=== PATIENT | female | born 1945 | race Caucasian/White ===

== ENCOUNTER 2017-09-06 07:25 | Day surgery (SDC) | payer OTHER ==
[2017-08-31 15:38] VITALS: Ht 160 cm; Wt 54.5 kg
[~2017-09-06] VITALS: Ht 160 cm; Wt 54.5 kg
[~2017-09-06 07:25] MED LIST: ALEN70TA3 PO; ASPI325T39 PO; CEFAZOLIN 2000MG IV PUSH 15 ML IV SCH; CITA40TA12 PO; HYDR25TA4 PO; LACTATED RINGER'S 1000ML 1,000 ML IV SCH; LISI40TA PO; SIME1CAP11 PO; SIMV40TA2 PO
[2017-09-06] MEDS ORDERED: ONDANSETRON INJ 2 MG/ML 2 ML VIAL IV PRN ×2 (08:00→10:45)
[2017-09-06] MEDS ORDERED: LABETALOL HCL IV 5 MG/ML 20ML IV PRN (08:00)
[2017-09-06] MEDS ORDERED: FENTANYL CITRATE INJ 50 MCG/1 ML 2 ML VIAL IV PRN (08:00)
[2017-09-06] MEDS ORDERED: MEPERIDINE HCL 25 MG/ML CARP IV PRN (08:00)
[2017-09-06] MEDS ORDERED: ATROPINE SULFATE 0.1 MG/ML 5ML SYR IV PRN (08:00)
[2017-09-06] MEDS ORDERED: EpHEDrine SULFATE INJ 50 MG/ML AMP IV PRN (08:00)
[2017-09-06] MEDS ORDERED: HYDROmorphone INJ 1 MG/ML SYR IV PRN (08:00)
[2017-09-06 08:16] VITALS: BP 159/56; PULSE 75; TEMP 36.6; O2SAT 93
[2017-09-06] MEDS ORDERED: MIDAZOLAM HCL 1 MG/ML 2ML VIAL ONE (08:47)
[2017-09-06] MEDS ORDERED: FENTANYL CITRATE INJ 50 MCG/1 ML 2 ML VIAL ONE (08:48)
--- NOTE | 2017-09-06 09:16 | History & Physical Bridge Note ---
H&P Re-Evaluation Bridge Note: I have examined the patient, reviewed the History & Physical and in the interval since the performance of the History & Physical I have noted the following changes of clinical significance: No changes noted
[2017-09-06] MEDS ORDERED: BUPIVACAINE 0.5 % 5 MG/1 ML MPF 30ML VIAL ONE (09:36)
[2017-09-06] MEDS ORDERED: PROPOFOL IV EMULSION 10 MG/ML 20 ML VIAL IV ONE (10:07)
[2017-09-06] MEDS ORDERED: EpHEDrine SULFATE 50MG/5ML SYR ONE (10:07)
[2017-09-06] MEDS ORDERED: PHENYLEPHRINE 100MCG/ML 5ML SYR ONE (10:07)
[2017-09-06] MEDS ORDERED: ONDANSETRON INJ 2 MG/ML 2 ML VIAL ONE (10:07)
[2017-09-06] MEDS ORDERED: DEXAMETHASONE SOD INJ 4 MG/ML VIAL ONE (10:07)
[2017-09-06] MEDS ORDERED: LIDOCAINE HCL 2% 2 ML VIAL (20MG/ML) ONE (10:07)
--- NOTE | 2017-09-06 10:30 | [facility] Post Operative Brief Note ---
Immediate Operative Summary Operative Date Sep 06, 2017. Pre-Operative Diagnosis Left Inguinal Hernia Post-Operative Diagnosis Left Femoral Hernia Procedure(s) Performed Left Femoral Hernia Repair with Mesh Surgeon Dr. Diego Pate Nut Feeder Surgeon(s) None Estimated Blood Loss 5ml Findings See Below See dictation Specimens none per surgeon Drains None Anesthesia Type General Complication(s) none
[2017-09-06] MEDS ORDERED: SODIUM CHLORIDE 0.9% 1000ML 1,000 ML IV SCH (10:31)
--- NOTE | 2017-09-06 10:33 | Discharge Instructions ---
Discharge Instructions Date of Service Sep 06, 2017. Admission Reason for Admission: Left Inguinal Hernia Discharge Discharge Diagnosis / Problem: Left femoral hernia Discharge Goals Goal(s): Decrease discomfort Activity Recommendations Activity Limitations: per Instructions/Follow-up section Lifting Limitations: no more than 10 pounds (for 6 weeks) Shower/Bathe: tomorrow (shower only) ACTIVITY RECOMMENDATIONS: * Walk as much as possible. * No heavy lifting (>10 lbs.) for 6 weeks. SPECIAL CARE INSTRUCTIONS: * Ice to hernia repair site on and off until bedtime tonight. * May shower in 24 hours. Let water run over area and pat dry. * Leave steri strips on for one week. * Call the surgeon's office with any questions or concerns - (ex. temperature higher than 101 degrees F, excessive bleeding or pain). MEDICATIONS: Resume previous medications unless instructed otherwise by your surgeon. * Ibuprofen 600 mg every 6 hours with food * Percocet 1 every 4 hours, as needed for pain FOLLOW UP VISIT: If not already scheduled, please call the office to schedule a two week follow- up appointment. Office number . Current Hospital Diet Patient's current hospital diet: Discharge Diet Recommended Diet: Regular Diet Procedures Procedures Performed: Left Femoral Hernia Repair with Mesh Pending Studies Studies pending at discharge: no Medical Emergencies . Who to Call and When: Medical Emergencies: If at any time you feel your situation is an emergency, please call 911 immediately. . Non-Emergent Contact Non-Emergency issues call your: Primary Care Provider, Surgeon Call Non-Emergent contact if: your pain is worsening, wound has increased redness, wound has increased pain . "Provider Documentation" section prepared by Diego Pate. . VTE Core Measure Inpt VTE Proph given/why not?: Treatment not indicated
[2017-09-06] MEDS ORDERED: OXYCODONE/ACETAMINOPHEN 5-325 TAB PO PRN (10:45)
[2017-09-06] MEDS ORDERED: MoRPHine SULFATE 4 MG/ML 1 ML CARP\\VIAL IV PRN (10:45)
--- NOTE | 2017-09-06 10:50 | OPERATIVE REPORT ---
DATE OF OPERATION: 09/06/2017 PREOPERATIVE DIAGNOSIS: Left inguinal hernia. POSTOPERATIVE DIAGNOSIS: Left femoral hernia. PROCEDURE: Repair of left femoral hernia. SURGEON: Dr. Pate. FINDINGS: The patient had a femoral hernia. It was clearly coming through the femoral canal below the inguinal ligament. I did not explore the inguinal canal once the femoral hernia was identified. There were no incarcerated contents. TECHNIQUE: The patient was given a general anesthetic and the area was prepped and draped in the usual sterile fashion. Left inguinal incision was made, carried down through the subcutaneous tissue. There was 1 bridging vessel that had to be doubly clamped, divided and ligated using 3-0 Vicryl ties. Further dissection was carried out until the hernia sac could be identified and it was then clear that the hernia sac was coming through the femoral canal below the inguinal ligament. It was away from the surrounding subcutaneous tissue using blunt and cautery dissection where appropriate. This dissection was carried down until the edges of the defect and edges of the fascia could be identified. The hernia sac was then easily reduced. The peritoneum was away from the undersurface of the fascia inside the fascia. A large mesh plug was then obtained. Some of the inner leaflets were removed and was then placed in the retrofascial preperitoneal position. It was secured to the edges of the fascia using 0 PDS. The fascial defect was then closed with a single 0 PDS. The area was inspected for bleeding and none was seen. The deep subcutaneous tissue was closed with running 2-0 Vicryl, the superficial subcutaneous tissue was closed with running 3-0 Vicryl and skin was closed with 4-0 Monocryl in a running subcuticular fashion. Skin was anesthetized with 0.5% Marcaine and an ilioinguinal block was performed with that same local. Estimated blood loss was 5 mL. Sponge, needle and instrument counts were correct prior to closure. The patient tolerated the surgical procedure without complication and was transferred to recovery. I attest to the content of the Intraoperative Record and any orders documented therein. Any exception s are noted below.
[2017-09-06 11:20] VITALS: BP 118/57; PULSE 81; TEMP 36.5; O2SAT 96
[2017-09-06 11:50] VITALS: BP 107/47; PULSE 86; TEMP 36.5; O2SAT 94
--- NOTE | 2017-09-06 11:50 | Anesthesiology Progress Note ---
Anesthesia Post Op Note Date & Time Sep 06, 2017 at 11:50 Vital Signs Pain Intensity: 0 Vital Signs Past 12 Hours Date Time Temp Pulse Resp B/P (MAP) Pulse Ox O2 Delivery O2 Flow Rate FiO2 09/06/17 11:10 37.2 85 16 114/61 93 Room Air Oxymask 09/06/17 11:00 88 16 122/62 95 Room Air Oxymask 09/06/17 10:50 91 16 117/60 100 Oxymask 10 09/06/17 10:40 92 16 122/58 100 Oxymask 10 09/06/17 10:34 36.8 82 16 100/62 100 Oxymask 10 09/06/17 08:16 36.6 75 18 159/56 (90) 93 Room Air Notes Mental Status: alert / awake / arousable, participated in evaluation Pt Amnestic to Procedure: Yes Nausea / Vomiting: adequately controlled Pain: adequately controlled Airway Patency, RR, SpO2: stable & adequate BP & HR: stable & adequate Hydration State: stable & adequate Anesthetic Complications: no major complications apparent
== END 2017-09-06 12:15 | disposition home or self-care (01) ==
LOC: C.ACU 07:25
PROVIDERS: ATTEND Surgery
DX: K41.90 Unilateral femoral hernia, without obstruction or gangrene, not specified as recurrent (principal); E78.5 Hyperlipidemia, unspecified; I10 Essential (primary) hypertension; F32.9 Major depressive disorder, single episode, unspecified; F17.200 Nicotine dependence, unspecified, uncomplicated; Z79.82 Long term (current) use of aspirin; Z79.899 Other long term (current) drug therapy

== ENCOUNTER 2021-02-21 08:00 | Inpatient (IN) ==
[2021-02-21] MEDS ORDERED: SODIUM CHLORIDE 0.9% 1000ML 1,000 ML IV STA (09:10)
[2021-02-21] MEDS ORDERED: ALBUT/IPRATROP 3MG/0.5MG NEB 3 ML VIAL NEB ONE (09:12)
[2021-02-21] MEDS ORDERED: ACETAMINOPHEN 1,000 MG/100 ML VIAL IV STA (09:12)
[2021-02-21] MEDS ORDERED: dexAMETHasone 6 MG in SYRINGE 0 ML IV ONE (09:12)
[2021-02-21] MEDS ORDERED: CEFEPIME 2,000 MG/20 ML VIAL IV STA (09:13)
[2021-02-21] MEDS ORDERED: DEXAMETHASONE SOD INJ 4 MG/ML VIAL ONE (09:34)
[2021-02-21 09:38] LABS: Alanine Aminotransferase 19 U/L (12-78); Aspartate Aminotransferase 19 U/L (15-37); BUN Creatinine Ratio 11.4 (10-20); Blood Urea Nitrogen 9 mg/dl (7-18); Calcium 9.7 mg/dl (8.5-10.1); Carbon Dioxide 25 mmol/L (21-32); Chloride 88 mmol/L (98-107); Est GFR (African American) 84.2 ml/min; Est GFR (Non-African American) 72.6 ml/min; Glucose 123 mg/dl (70-99); Sodium 121 mmol/L (136-145)
[2021-02-21 09:42] LABS: Albumin Globulin Ratio 0.9 (0.9-2); Alkaline Phosphatase 54 U/L (45-117); Bilirubin,Total 0.7 mg/dl (0.2-1); Globulin 4.4 gm/dl (2.5-4.0); Total Protein 8.4 gm/dl (6.4-8.2); Troponin I < 0.015 ng/ml (0-0.045)
[2021-02-21 09:45] LABS: Hematocrit (blood only) 38.6 % (37-47); Hemoglobin 13.9 g/dL (12.0-16.0); Mean Corpuscular Volume 83.2 fL (80-100); Mean Platelet Volume 9.5 fL (7.4-10.4); Platelet Count 171 K/uL (130-400); RDW Standard Deviation 39.4 fL (36.4-46.3); Red Blood Count 4.64 M/uL (4.2-5.4); White Blood Count 13.24 K/uL (4.8-10.8)
[2021-02-21 09:46] LABS: Basophils # (auto) 0.01 K/uL (0-0.2); Basophils % (auto) 0.1 %; Eosinophils # (auto) 0.05 K/uL (0-0.5); Eosinophils % (auto) 0.4 %; Immature Granulocytes # (auto) 0.04 K/uL (0.00-0.02); Immature Granulocytes % (auto) 0.3 %; Lymphocytes # (auto) 0.33 K/uL (1.2-3.4); Lymphocytes % (auto) 2.5 %; Monocytes # (auto) 0.79 K/uL (0.11-0.59); Neutrophils # (auto) 12.02 K/uL (1.4-6.5); Neutrophils % (auto) 90.7 %
--- NOTE | 2021-02-21 09:57 | Electrocardiogram Report ---
Test Reason : Blood Pressure : / mmHG Vent. Rate : 096 BPM Atrial Rate : 096 BPM P-R Int : 170 ms QRS Dur : 072 ms QT Int : 340 ms P-R-T Axes : 080 073 051 degrees QTc Int : 429 ms Poor data quality, interpretation may be adversely affected Normal sinus rhythm Left atrial enlargement Abnormal ECG No previous ECGs available Confirmed by Wade Murillo ([id number]) on 02/21/2021 9:56:50 AM Referred By: REFERRED SELF Confirmed By:Wade Murillo
--- NOTE | 2021-02-21 10:04 | XRay Report ---
XR chest 1V portable CLINICAL HISTORY: Fever COMPARISON STUDY: No previous studies for comparison. FINDINGS: Lung volumes are normal. There is no pneumothorax or pleural effusion. Cardiac size is norm al. Mediastinal contours are unremarkable. There may be underlying emphysema. Note is made of left mi d and left basilar opacity. There is also mild right basilar opacity. IMPRESSION: 1. Bilateral airspace opacities, greater within the left lung. The findings favor an infectious proce ss. Radiographic follow-up to ensure resolution is recommended. 2. Suspected underlying emphysema. ACT 112: Negative or not required by law. Electronically signed by: Bandar Bond M.D. 02/21/2021 10:02 AM
--- NOTE | 2021-02-21 13:07 | History & Physical Report ---
Date of Service February 21, 2021 Assessment & Plan (1) Bilateral pneumonia: (2) COPD exacerbation: Plan: Pt is 75 y/o F with PMH COPD, H/O tobacco use smoked for 60 years, quit in 10/2020, HTN, HLD, depression, RLS, underweight presented to ER with c/o increased SOB started in the middle of the night. Recent recurrent COPD exacerbations treated with zithromax and prednisone. In ER T: 37.9, P: 107, R: 40, BP: 178/74, 91% on room air. WBC: 13, lactate: 2.3. Procalcitonin: 0.27. Negative COVID 19 PCR. Initially Bipap was attempted secondary to pt's tachypnea however pt did not tolerate. On 2L oxymask with sats 97-100% and respirations down to 22. CXR: Bilateral airspace opacities, greater within the left lung. The findings favor an infectious process. Suspected underlying emphysema. In ER given cefepime Repeat lactate 2.1 Blood cultures pending Duo nebs Supplemental oxygen Solu-Medrol 40 mg every 8 hours Rocephin, doxycycline Continue home inhalers Flutter valve CBC, BMP in a.m. If no improvement consider pulmonology consultation (3) Hyponatremia: Plan: Na: 121 (was 136 in 10/2020 and 129 (03/2020) Pt received total 1L NSS Repeat BMP Obtain serum osmolality, urine osmolality, urine sodium Hyponatremia may be secondary to diuretics. Hold maxide If no improvement or worsening consider nephrology consult (4) Myoclonic jerking: Plan: Patient with jerking type movements. Is awake and alert and oriented. Reports this occurred in the past and had hypoxia Treat COPD exacerbation as above Monitor If no improvement consider neurology consult (5) HTN (hypertension): Plan: BP stable Continue lisinopril Hold triamterene/HCTZ (6) HLD (hyperlipidemia): Plan: Continue simvastatin (7) History of tobacco use: Plan: Recent smoking cessation 10/2020 DVT Prophylaxis -Lovenox SQ Full Code as per discussion with pt Follows with Dr Gallagher for routine care Pt was seen and care coordinated with Dr Kearney. See addendum (8) BRITTNEY (acute kidney injury): History of Present Illness Chief Complaint: SOB Primary Care Provider: Santiago Gallagher MD Pt is 75 y/o F with PMH COPD, H/O tobacco use smoked for 60 years, quit in 10/2020, HTN, HLD, depression, RLS, underweight presented to ER with c/o increased SOB started in the middle of the night. History of recurrent COPD exacerbations. In 10/2020 was seen at [facility] and transferred to [facility] for COPD exacerbation and abnormal body movements. Was treated for COPD exacerbation and body movement resolved and discharged on Zithromax and prednisone. Patient reports 12/2020 started with sore throat, increased sputum production, increased shortness of breath and PCP called her in Zithromax and a course of prednisone with improvement of symptoms. Patient states last night in the middle the night started with increased shortness of breath and "spasm" sensation of lungs. Yesterday she had yellow mucus. Today she reports is unable to expel mucus. Is unaware of any fever or chills. today noticed jerking type movements of body that she reports is like occurred during COPD exacerbation in 10/2020. Does report has intermittent blood-tinged mucus and chronic productive cough varying clear to yellow in coloration. Follows with Dr. Carlson pulmonology. Denies history home oxygen use or history of exacerbation causing intubation. H/O COVID 19 vaccine 2 doses in 09/2020. Chronic poor appetite, states starting to have a little increased appetite since smoking cessation. Drinks over 1 pot of coffee a day, 24 ounces cola and 1-2 cups milk a day. Denies N/V/D/C, VENTURA, dizziness, syncope, vision changes, neck pain,orthopnea, palpitations, choking, otalgia, rhinorrhea, abdominal pain, paresthesias, weakness, extremity weakness, extremity edema, rashes, urinary symptoms. In ER T: 37.9, P: 107, R: 40, BP: 178/74, 91% on room air. WBC: 13, lactate: 2.3. CXR: bilateral opacities. Negative COVID 19 PCR. Initially bipap was attempted secondary to pt's tachypnea however pt did not tolerate. On 2L oxymask with sats 97-100% and respirations down to 22. Pt given cefepime in ER. Will be admitted for further evaluation and treatment. Allergies Allergy/AdvReac Type Severity Reaction Status Date / Time No Known Allergies Allergy Unverified 02/21/21 11:03 Home Medications Medication Instructions Recorded Confirmed Type albuterol sulfate 90 mcg/actuation 2 puff INHALATION Q4H PRN 02/21/21 02/21/21 History aerosol inhaler (Ventolin HFA) alendronate 70 mg tablet (Fosamax) 70 mg PO WK 02/21/21 02/21/21 History aspirin 81 mg tablet,delayed 81 mg PO QAM 02/21/21 02/21/21 History release (Aspirin Low Dose) fluticasone propionate 110 1 puff INHALATION Q12 02/21/21 02/21/21 History mcg/actuation HFA aerosol inhaler (Flovent HFA) lisinopril 40 mg tablet (Zestril) 40 mg PO QAM 02/21/21 02/21/21 History simvastatin 40 mg tablet (Zocor) 40 mg PO HS 02/21/21 02/21/21 History triamterene 37.5 1 cap PO QAM 02/21/21 02/21/21 History mg-hydrochlorothiazide 25 mg capsule umeclidinium 62.5 mcg-vilanterol 1 inh INHALATION DAILY 02/21/21 02/21/21 History 25 mcg/actuation powdr for inhalation (Anoro Ellipta) Past Med/Surg History Medical History (Updated 02/21/21 @ 21:38 by Maeve Kearney DO) COPD (chronic obstructive pulmonary disease) History of tobacco use 60 year history. Quit 10/2020 HLD (hyperlipidemia) HTN (hypertension) Underweight Surgical History (Updated 02/21/21 @ 14:26 by Maryellen Herbert PA-C) History of femoral hernia repair History of hysterectomy Family History (Updated 02/21/21 @ 14:26 by Maryellen Herbert PA-C) Other COPD (chronic obstructive pulmonary disease) Coronary heart disease Lung cancer Social History (Updated 02/21/21 @ 14:26 by Maryellen Herbert PA-C) Smoking Status: Former smoker Tobacco Cessation Education Requested by Patient: No Hx Alcohol Use: No Hx Substance Use: No Preferred Language: Mosotho Communication Ability: Effective [employer] Manager Required: No Beliefs That Will Affect Care: None Current Living Situation: Alone Other Information That Helps Us Care for You: No Feels Safe at Home: Yes Safety Concerns: Feels Safe At This Time Assistive Devices: Glasses and Oxygen - Continuous Review of Systems Review of Systems: All systems reviewed & are unremarkable except as noted in HPI & below Physical Exam Physical Exam: General: Cachectic, chronically ill-appearing elderly female Head: normocephalic, atraumatic Eyes: PERRL, EOM's intact, conjunctiva non-injected, anicteric ENT: normal inspection external ears, nose, mucous membranes mildly dry Neck: supple, trachea midline Lungs: Respirations 22, on 2 L oxygen mask, severely diminished breath sounds throughout, slight wheezing heard, no rales noted, short of breath with conversation CV: Tachycardia rate 104, regular rhythm, no murmur, no pretibial edema Abd: normal BS, soft, non-tender Ext: no cyanosis, no calf tenderness Neuro: A&O x 3, no focal deficits noted, normal affect Skin: warm, dry Results & Data Results & Data ([facility]) Vital Signs (Past 12 Hours) Vital Signs Temp Pulse Pulse Resp BP Pulse Ox 02/21/21 13:00 106 H 23 134/61 97 02/21/21 12:30 98 H 24 132/58 L 99 02/21/21 12:00 99 H 21 125/60 98 02/21/21 11:31 108 H 29 H 147/85 H 96 02/21/21 11:01 104 H 31 H 139/79 99 02/21/21 10:30 103 H 23 129/71 100 02/21/21 10:00 98 H 26 H 159/70 H 100 02/21/21 09:49 95 H 24 99 02/21/21 09:30 93 H 27 H 149/86 H 100 02/21/21 09:03 100 02/21/21 09:00 100 H 30 H 177/78 H 100 02/21/21 08:34 96 H 31 H 100 02/21/21 08:07 37.9 C H 107 H 40 H 178/74 H 91 Laboratory Results Short CBC 02/21/21 Range/Units 08:38 WBC 13.24 H (4.8-10.8) K/uL Hgb 13.9 (12.0-16.0) g/dL Hct 38.6 (37-47) % Plt Count 171 (130-400) K/uL BMP 02/21/21 08:38 Sodium 121 L Potassium 4.0 Chloride 88 L Carbon Dioxide 25 BUN 9 Creatinine 0.80 Glucose 123 H Calcium 9.7 Cardiac Enzymes 02/21/21 Range/Units 08:38 Troponin I < 0.015 (0-0.045) ng/ml Liver Function 02/21/21 Range/Units 08:38 Total Bilirubin 0.7 (0.2-1) mg/dl AST 19 (15-37) U/L ALT 19 (12-78) U/L Alkaline Phosphatase 54 (45-117) U/L Albumin 4.0 (3.4-5.0) gm/dl Diagnostic Findings Chest X-Ray 02/21/21 09:10 XR chest 1V portable CLINICAL HISTORY: Fever COMPARISON STUDY: No previous studies for comparison. FINDINGS: Lung volumes are normal. There is no pneumothorax or pleural effusion. Cardiac size is normal. Mediastinal contours are unremarkable. There may be underlying emphysema. Note is made of left mid and left basilar opacity. There is also mild right basilar opacity. IMPRESSION: 1. Bilateral airspace opacities, greater within the left lung. The findings favor an infectious process. Radiographic follow-up to ensure resolution is recommended. 2. Suspected underlying emphysema. ACT 112: Negative or not required by law. Electronically signed by: Bandar Bond M.D. 02/21/2021 10:02 AM Code Status & VTE Plan VTE Prophylaxis Plan VTE Prophylaxis will be ordered: Yes Supervising Physician Co-Signing Physician Notes I have seen and examined the patient and have discussed the case with the provider above. I agree with the assessment and plan as stated. 75 yo COPD patient with a recent history of quitting smoking 3 months ago presents with yellowish sputum and increased shortness of breath as above. She is feeling better after initial treatment with steroids, bronchodilators and oxygen. She is on broad spectrum antibiotics for pneumonia pending cultures and clinical improvement. She does reports persistent fevers and chills and some central chest discomfort from coughing. Reports her myoclonic jerking is improved/resolved. Physical exam reveals S1/2 heard wo m/g/r, lungs are clear to auscultation but patient is not moving air well at all. Generally she is in mild distress and stops to catch her breath when speaking. No abdominal tenderness, abd soft and ND, no peripheral edema. Extremities warm and well- perfused. Met SIRS criteria but not believed to be in sepsis. Agree with abx, steroids and continued bronchodilator therapy with pulmonary toilet as tolerated. Ambulate as tolerated. Agree with additional IVF and trend sodium- consult Nephro for assistance with management of hyponatremia. Suspect she is dehydrated in setting of infection and BRITTNEY with low urine sodium and low serum osmolality. Praised for quitting tobacco! Caio, DO
[2021-02-21] MEDS ORDERED: POLYETHYLENE (MIRALAX) 17 GM PACK PO PRN (13:58)
[2021-02-21] MEDS ORDERED: ACETAMINOPHEN 325 MG TAB PO PRN (13:58)
[2021-02-21] MEDS ORDERED: ONDANSETRON INJ 2 MG/ML 2 ML VIAL IV PRN (13:58)
[2021-02-21] MEDS: PATIENT'S HEIGHT AND/OR WEIGHT NEEDED SCH ×2 (14:15→14:16)
[2021-02-21 14:34] LABS: Calcium 8.5 mg/dl (8.5-10.1); Creatinine Clr Calc Pharmacy 36.5 ml/min; Est GFR (African American) 59.2 ml/min; Est GFR (Non-African American) 51.1 ml/min; Potassium 3.8 mmol/L (3.5-5.1)
[2021-02-21] MEDS: DOXYCYCLINE HYCLATE 100 MG in DEXTROSE 5% 100 ML IV SCH (15:17)
[2021-02-21] MEDS: ENOXAPARIN INJ 30 MG/0.3 ML SYR SQ SCH (15:18)
[2021-02-21] MEDS: ALBUT/IPRATROP 3MG/0.5MG NEB 3 ML VIAL NEB SCH ×2 (15:31→19:55)
[2021-02-21] MEDS: methylPREDNISolone 40 MG in SYRINGE 0 ML IV SCH (16:26)
[2021-02-21] MEDS: cefTRIAXone SODIUM 2,000 MG in DEXTROSE 5% 50 ML IV SCH (17:51)
[2021-02-21 20:08] LABS: BUN Creatinine Ratio 11.9 (10-20); Calcium 8.6 mg/dl (8.5-10.1); Creatinine Clr Calc Pharmacy 29.8 ml/min; Est GFR (African American) 46.4 ml/min; Potassium 3.7 mmol/L (3.5-5.1)
[2021-02-21] MEDS: SIMVASTATIN 40 MG TAB PO SCH (21:32)
[2021-02-21] MEDS ORDERED: SODIUM CHLORIDE 0.9% 1000ML 1,000 ML IV SCH (21:45)
[2021-02-22] MEDS: DOXYCYCLINE HYCLATE 100 MG in DEXTROSE 5% 100 ML IV SCH ×2 (01:08→13:35)
[2021-02-22] MEDS: methylPREDNISolone 40 MG in SYRINGE 0 ML IV SCH ×2 (01:08→08:36)
[2021-02-22 01:23] LABS: BUN Creatinine Ratio 17.6 (10-20); Calcium 8.6 mg/dl (8.5-10.1); Creatinine Clr Calc Pharmacy 37.2 ml/min; Est GFR (African American) 60.6 ml/min; Est GFR (Non-African American) 52.3 ml/min; Potassium 3.6 mmol/L (3.5-5.1)
[2021-02-22 06:45] LABS: Hematocrit (blood only) 29.4 % (37-47); Hemoglobin 10.5 g/dL (12.0-16.0); Immature Granulocytes # (auto) 0.03 K/uL (0.00-0.02); Immature Granulocytes % (auto) 0.3 %; Lymphocytes % (auto) 4.9 %; Mean Corpuscular Hemoglobin 29.6 pg (25-34); Mean Corpuscular Hgb Conc 35.7 g/dL (32-36); Mean Corpuscular Volume 82.8 fL (80-100); Mean Platelet Volume 9.8 fL (7.4-10.4); Neutrophils # (auto) 9.29 K/uL (1.4-6.5); Neutrophils % (auto) 91.8 %; Platelet Count 179 K/uL (130-400); RDW Standard Deviation 39.7 fL (36.4-46.3); Red Blood Count 3.55 M/uL (4.2-5.4); White Blood Count 10.12 K/uL (4.8-10.8)
[2021-02-22 06:58] LABS: BUN Creatinine Ratio 20.5 (10-20); Calcium 8.6 mg/dl (8.5-10.1); Est GFR (African American) 80.5 ml/min; Est GFR (Non-African American) 69.5 ml/min; Potassium 3.7 mmol/L (3.5-5.1)
[2021-02-22] MEDS: ALBUT/IPRATROP 3MG/0.5MG NEB 3 ML VIAL NEB SCH ×4 (07:25→19:52)
--- NOTE | 2021-02-22 08:10 | Emergency Department Note ---
History of Present Illness General Chief complaint: Shortness of Breath/Dyspnea Stated complaint: SOB Source: patient, family and RN notes reviewed Mode of arrival: ambulatory Limitations: no limitations History of Present Illness Provider complaint: SOB, COPD Maximum Pain Intensity: 2 This patient is a 75-year-old female who presents to the emergency department with complaints of shortness of breath and COPD exacerbation. Patient states that she uses inhalers but they are not working. She got up to go the bathroom at 3 AM this morning and her lungs "spasmed." She does not normally wear oxygen at home but the nurse placed her on oxygen here in the emergency department she has been feeling a lot better. She does not believe she was hypoxic at any point. Patient denies any fevers but admits to a dry cough. She has had an increased work of breathing and only when she is coughing that she has some chest discomfort. Her dyspnea is exacerbated by exertion. Home Medications Medication Instructions Recorded Confirmed Type albuterol sulfate 90 mcg/actuation 2 puff INHALATION Q4H PRN 02/21/21 02/21/21 History aerosol inhaler (Ventolin HFA) alendronate 70 mg tablet (Fosamax) 70 mg PO WK 02/21/21 02/21/21 History aspirin 81 mg tablet,delayed 81 mg PO QAM 02/21/21 02/21/21 History release (Aspirin Low Dose) fluticasone propionate 110 1 puff INHALATION Q12 02/21/21 02/21/21 History mcg/actuation HFA aerosol inhaler (Flovent HFA) lisinopril 40 mg tablet (Zestril) 40 mg PO QAM 02/21/21 02/21/21 History simvastatin 40 mg tablet (Zocor) 40 mg PO HS 02/21/21 02/21/21 History triamterene 37.5 1 cap PO QAM 02/21/21 02/21/21 History mg-hydrochlorothiazide 25 mg capsule umeclidinium 62.5 mcg-vilanterol 1 inh INHALATION DAILY 02/21/21 02/21/21 History 25 mcg/actuation powdr for inhalation (Anoro Ellipta) Allergies Allergy/AdvReac Type Severity Reaction Status Date / Time No Known Allergies Allergy Unverified 02/21/21 11:03 Past Med/Surg History Medical History COPD (chronic obstructive pulmonary disease) History of tobacco use 60 year history. Quit 10/2020 HLD (hyperlipidemia) HTN (hypertension) Underweight Surgical History History of femoral hernia repair History of hysterectomy Family History Other COPD (chronic obstructive pulmonary disease) Coronary heart disease Lung cancer Social History Smoking Status: Former smoker Tobacco Cessation Education Requested by Patient: No Hx Alcohol Use: No Hx Substance Use: No Preferred Language: Bhutanese Communication Ability: Effective [employer] Service Technician Required: No Beliefs That Will Affect Care: None Current Living Situation: Alone Other Information That Helps Us Care for You: No Feels Safe at Home: Yes Safety Concerns: Feels Safe At This Time Assistive Devices: Oxygen - Continuous Review of Systems See HPI for pertinent positives & negatives. and A total of 10 systems reviewed and were otherwise negative Physical Exam Vital Signs Vital Signs - 24 hr 02/21/21 08:34 02/21/21 09:00 02/21/21 09:03 Pulse Rate 96 H 100 H Pulse Rate [Apical] Pulse Rate from SpO2 Sensor 97 H 100 H Respiratory Rate 31 H 30 H Respiratory Effort / Characteristics Blood Pressure 177/78 H Blood Pressure Mean 111 Pulse Oximetry 100 100 100 Oxygen Delivery Method Oxymask Oxymask Oxymask Oxygen Flow Rate 6 6 6 02/21/21 09:30 02/21/21 09:49 02/21/21 10:00 Pulse Rate 93 H 98 H Pulse Rate [Apical] 95 H Pulse Rate from SpO2 Sensor 93 H 97 H Respiratory Rate 27 H 24 26 H Respiratory Effort / Characteristics Non-Labored Spontaneous Blood Pressure 149/86 H 159/70 H Blood Pressure Mean 107 99 Pulse Oximetry 100 99 100 Oxygen Delivery Method Oxymask Nebulizer Oxygen Flow Rate 3 02/21/21 10:30 02/21/21 11:01 02/21/21 11:31 Pulse Rate 103 H 104 H 108 H Pulse Rate [Apical] Pulse Rate from SpO2 Sensor 103 H 100 H 108 H Respiratory Rate 23 31 H 29 H Respiratory Effort / Characteristics Blood Pressure 129/71 139/79 147/85 H Blood Pressure Mean 90 99 105 Pulse Oximetry 100 99 96 Oxygen Delivery Method Nasal Cannula Oxymask Oxymask Oxygen Flow Rate 2 2 2 02/21/21 12:00 02/21/21 12:30 Pulse Rate 99 H 98 H Pulse Rate [Apical] Pulse Rate from SpO2 Sensor 99 H 99 H Respiratory Rate 21 24 Respiratory Effort / Characteristics Blood Pressure 125/60 132/58 L Blood Pressure Mean 81 82 Pulse Oximetry 98 99 Oxygen Delivery Method Oxymask Oxymask Oxygen Flow Rate 2 2 Vital signs reviewed. General: Elderly, chronically ill-appearing 75 yo female, in no significant distress. HEENT: No scleral icterus, PERRLA, neck supple. Atraumatic. Cardiovascular: Regular rate and rhythm, no extra sounds. Pulmonary: Crackles at the bases bilaterally, distant breath sounds. Dry cough. Patient is on oxygen. Abdomen: Soft, nontender, nondistended, positive bowel sounds. Musculoskeletal: Atraumatic, no peripheral edema. Kyphotic. Neurologic: Patient awake alert and oriented x 3 Skin: Warm, dry, no rash Course Administered Medications Acetaminophen (Acetaminophen 325 Mg Tab) 650 mg PO Q4H PRN PRN Reason: Pain or Fever Stop: 03/23/21 13:57 Last Admin: 02/21/21 21:33 Dose: 650 mg Documented by: [id number] Amoxicillin (Amoxicillin 500 Mg Cap) 1,000 mg PO Q8H [facility] Stop: 03/02/21 08:59 Last Admin: 02/23/21 19:38 Dose: 1,000 mg Documented by: [id number] Admin: 02/23/21 18:32 Dose: 1,000 mg Documented by: [id number] Admin: 02/23/21 10:26 Dose: 1,000 mg Documented by: [id number] Aspirin (Aspirin 81 Mg Ectab) 81 mg PO QAM [facility] Stop: 03/24/21 08:59 Last Admin: 02/23/21 07:32 Dose: 81 mg Documented by: [id number] Admin: 02/22/21 08:36 Dose: 81 mg Documented by: [id number] Doxycycline Hyclate (Doxycycline Hyclate 100 Mg Cap) 100 mg PO BID [facility] Stop: 03/02/21 08:59 Last Admin: 02/23/21 10:26 Dose: 100 mg Documented by: [id number] Enoxaparin Sodium (Enoxaparin Inj 30 Mg/0.3 Ml Syr) 30 mg SQ Q24H [facility] Stop: 03/23/21 14:59 Last Admin: 02/23/21 17:32 Dose: 30 mg Documented by: [id number] Admin: 02/22/21 15:27 Dose: 30 mg Documented by: [id number] Admin: 02/21/21 15:18 Dose: 30 mg Documented by: [id number] Fluticasone Furoate (Fluticasone Furoate 200mcg 14 Puffs/Inhaler) 1 puffs INH DAILY [facility] Stop: 03/24/21 08:59 Last Admin: 02/23/21 07:31 Dose: 1 puffs Documented by: [id number] Admin: 02/22/21 08:36 Dose: 1 puffs Documented by: [id number] Guaifenesin/Codeine Phosphate (Guaifenesin/Codeine 200mg/20mg 10ml Udc) 10 ml PO Q6H PRN PRN Reason: Cough Stop: 03/25/21 12:25 Last Admin: 02/23/21 12:38 Dose: 10 ml Documented by: [id number] Sodium Chloride (Nss 1000ml) 1,000 mls @ 75 mls/hr IV .[id number] [facility] Stop: 02/24/21 00:49 Last Admin: 02/23/21 11:44 Dose: 75 mls/hr Documented by: [id number] Lisinopril (Lisinopril 40 Mg Tab) 40 mg PO QAM [facility] Stop: 03/24/21 08:59 Last Admin: 02/23/21 07:32 Dose: 40 mg Documented by: [id number] Admin: 02/22/21 08:36 Dose: 40 mg Documented by: [id number] Simvastatin (Simvastatin 40 Mg Tab) 40 mg PO HS [facility] Stop: 03/23/21 20:59 Last Admin: 02/22/21 20:26 Dose: 40 mg Documented by: [id number] Admin: 02/21/21 21:32 Dose: 40 mg Documented by: [id number] Umeclidinium/Vilanterol (Umeclidinium/Vilanterol 62.5/25mcg 7 Puffs/Inhaler) 1 puffs INH DAILY [facility] Stop: 03/24/21 08:59 Last Admin: 02/23/21 07:31 Dose: 1 puffs Documented by: [id number] Admin: 02/22/21 08:37 Dose: 1 puffs Documented by: [id number] Discontinued Medications Albuterol (Albut/Ipratrop 3mg/0.5mg Neb 3 Ml Vial) 12 ml NEB ONE ONE Stop: 02/21/21 09:13 Last Admin: 02/21/21 09:47 Dose: 12 ml Documented by: [id number] Albuterol (Albut/Ipratrop 3mg/0.5mg Neb 3 Ml Vial) 3 ml NEB QIDR [facility] Stop: 03/23/21 14:59 Last Admin: 02/23/21 07:53 Dose: 3 ml Documented by: [id number] Admin: 02/22/21 19:52 Dose: 3 ml Documented by: [id number] Admin: 02/22/21 14:51 Dose: 3 ml Documented by: [id number] Admin: 02/22/21 11:03 Dose: 3 ml Documented by: [id number] Admin: 02/22/21 07:25 Dose: 3 ml Documented by: [id number] Admin: 02/21/21 19:55 Dose: 3 ml Documented by: [id number] Admin: 02/21/21 15:31 Dose: 3 ml Documented by: [id number] Dexamethasone (Dexamethasone Sod Inj 4 Mg/Ml Vial) Confirm Administered Dose 8 mg .ROUTE .STK-MED ONE Stop: 02/21/21 09:35 Last Admin: 02/21/21 09:42 Dose: Not Given Documented by: [id number] Sodium Chloride (Nss 1000ml) 1,000 mls @ 100 mls/hr IV .Q10H [facility] Stop: 02/21/21 19:09 Last Infusion: 02/21/21 20:53 Dose: 0 mls/hr Documented by: [id number] Admin: 02/21/21 09:44 Dose: 100 mls/hr Documented by: [id number] Acetaminophen (Ofirmev) 1,000 mg in 100 mls @ 400 mls/hr IV NOW STA Stop: 02/21/21 09:26 Last Infusion: 02/21/21 10:02 Dose: 0 mls/hr Documented by: [id number] Admin: 02/21/21 09:46 Dose: 400 mls/hr Documented by: [id number] Dexamethasone 6 mg/ Syringe 1.5 mls @ 1 mls/min IV ONE ONE Stop: 02/21/21 09:13 Last Admin: 02/21/21 09:42 Dose: 1 mls/min Documented by: [id number] Cefepime HCl (Maxipime) 2,000 mg in 20 mls @ 5 mls/min IV NOW STA; Protocol Stop: 02/21/21 09:16 Last Admin: 02/21/21 10:24 Dose: 5 mls/min Documented by: [id number] Ceftriaxone Sodium 2,000 mg/ (Dextrose) 50 mls @ 100 mls/hr IV Q24H [facility]; Protocol Stop: 02/28/21 17:59 Last Infusion: 02/22/21 20:26 Dose: 0 mls/hr Documented by: [id number] Admin: 02/22/21 17:53 Dose: 100 mls/hr Documented by: [id number] Infusion: 02/21/21 18:21 Dose: 0 mls/hr Documented by: [id number] Admin: 02/21/21 17:51 Dose: 100 mls/hr Documented by: [id number] Doxycycline Hyclate 100 mg/ (Dextrose) 110 mls @ 50 mls/hr IV Q12H [facility] Stop: 02/28/21 14:14 Last Infusion: 02/23/21 04:53 Dose: 0 mls/hr Documented by: [id number] Admin: 02/23/21 02:34 Dose: 50 mls/hr Documented by: [id number] Infusion: 02/22/21 15:56 Dose: 0 mls/hr Documented by: [id number] Admin: 02/22/21 13:35 Dose: 50 mls/hr Documented by: [id number] Infusion: 02/22/21 03:42 Dose: 0 mls/hr Documented by: [id number] Admin: 02/22/21 01:08 Dose: 50 mls/hr Documented by: [id number] Infusion: 02/21/21 17:29 Dose: 0 mls/hr Documented by: [id number] Admin: 02/21/21 15:17 Dose: 50 mls/hr Documented by: [id number] Methylprednisolone 40 mg/ (Syringe) 0.64 mls @ 1.5 mls/min IV Q8H [facility] Stop: 03/23/21 16:59 Last Admin: 02/22/21 08:36 Dose: 1.5 mls/min Documented by: [id number] Admin: 02/22/21 01:08 Dose: 1.5 mls/min Documented by: [id number] Admin: 02/21/21 16:26 Dose: 1.5 mls/min Documented by: [id number] Sodium Chloride (Nss 1000ml) 1,000 mls @ 80 mls/hr IV .[id number] [facility] Stop: 02/22/21 10:14 Last Infusion: 02/22/21 10:09 Dose: 0 mls/hr Documented by: [id number] Admin: 02/21/21 22:18 Dose: 80 mls/hr Documented by: [id number] Miscellaneous (Patient's Height And/Or Weight Needed) 1 ea N/A Q30M [facility] Stop: 02/21/21 17:15 Last Admin: 02/21/21 14:16 Dose: 1 ea Documented by: [id number] Admin: 02/21/21 14:15 Dose: 1 ea Documented by: [id number] Prednisone (Prednisone 20 Mg Tab) 20 mg PO DAILY [facility] Stop: 03/24/21 13:29 Last Admin: 02/23/21 07:32 Dose: 20 mg Documented by: [id number] Admin: 02/22/21 15:27 Dose: 20 mg Documented by: [id number] Prednisone (Prednisone 20 Mg Tab) 20 mg PO NOW RUST Stop: 02/23/21 09:03 Last Admin: 02/23/21 10:26 Dose: 20 mg Documented by: [id number] Medical Decision Making Differential Diagnosis Reactive airway disease, pneumonia, pneumothorax, COPD, CHF, infections, cardiac ischemia, pulmonary embolism, musculoskeletal, gastrointestinal, as well as other pathologies. Medical Records Attestation: I reviewed the patient's medical records. Home Medications Current Medication List: was personally reviewed by me Laboratory Data Attestation: I reviewed the patient's lab results. Result diagrams: 02/22/21 05:33 02/23/21 07:24 Lab Results 02/21/21 02/21/21 02/21/21 Range/Units 08:38 08:38 08:39 WBC 13.24 H (4.8-10.8) K/uL RBC 4.64 (4.2-5.4) M/uL Hgb 13.9 (12.0-16.0) g/dL Hct 38.6 (37-47) % MCV 83.2 (80-100) fL MCH 30.0 (25-34) pg MCHC 36.0 (32-36) g/dL RDW Std Deviation 39.4 (36.4-46.3) fL RDW Coeff of Sam 13.0 (11.5-14.5) % Plt Count 171 (130-400) K/uL MPV 9.5 (7.4-10.4) fL Immature Gran % (Auto) 0.3 % Neut % (Auto) 90.7 % Lymph % (Auto) 2.5 % Coke % (Auto) 6.0 % Eos % (Auto) 0.4 % Baso % (Auto) 0.1 % Neut # (Auto) 12.02 H (1.4-6.5) K/uL Lymph # (Auto) 0.33 L (1.2-3.4) K/uL Coke # (Auto) 0.79 H (0.11-0.59) K/uL Eos # (Auto) 0.05 (0-0.5) K/uL Baso # (Auto) 0.01 (0-0.2) K/uL Immature Gran # (Auto) 0.04 H (0.00-0.02) K/uL Sodium 121 L (136-145) mmol/L Potassium 4.0 (3.5-5.1) mmol/L Chloride 88 L (98-107) mmol/L Carbon Dioxide 25 (21-32) mmol/L Anion Gap 8.0 (3-11) BUN 9 (7-18) mg/dl Creatinine 0.80 (0.6-1.2) mg/dl Est Cr Clr Drug Dosing Not Reportable Est GFR ( Amer) 84.2 ml/min Est GFR (Non-Af Amer) 72.6 ml/min BUN/Creatinine Ratio 11.4 (10-20) Glucose 123 H (70-99) mg/dl Lactate (0.4-2.0) mmol/L Calcium 9.7 (8.5-10.1) mg/dl Total Bilirubin 0.7 (0.2-1) mg/dl AST 19 (15-37) U/L ALT 19 (12-78) U/L Alkaline Phosphatase 54 (45-117) U/L Troponin I < 0.015 (0-0.045) ng/ml Total Protein 8.4 H (6.4-8.2) gm/dl Albumin 4.0 (3.4-5.0) gm/dl Globulin 4.4 H (2.5-4.0) gm/dl Albumin/Globulin Ratio 0.9 (0.9-2) TSH 1.250 (0.300-4.500) uIu/ml COVID-19 Eval Order SARS-CoV-2 (PCR) (Negative) 02/21/21 02/21/21 02/21/21 Range/Units 09:37 09:37 10:26 WBC (4.8-10.8) K/uL RBC (4.2-5.4) M/uL Hgb (12.0-16.0) g/dL Hct (37-47) % MCV (80-100) fL MCH (25-34) pg MCHC (32-36) g/dL RDW Std Deviation (36.4-46.3) fL RDW Coeff of Sam (11.5-14.5) % Plt Count (130-400) K/uL MPV (7.4-10.4) fL Immature Gran % (Auto) % Neut % (Auto) % Lymph % (Auto) % Coke % (Auto) % Eos % (Auto) % Baso % (Auto) % Neut # (Auto) (1.4-6.5) K/uL Lymph # (Auto) (1.2-3.4) K/uL Coke # (Auto) (0.11-0.59) K/uL Eos # (Auto) (0-0.5) K/uL Baso # (Auto) (0-0.2) K/uL Immature Gran # (Auto) (0.00-0.02) K/uL Sodium (136-145) mmol/L Potassium (3.5-5.1) mmol/L Chloride (98-107) mmol/L Carbon Dioxide (21-32) mmol/L Anion Gap (3-11) BUN (7-18) mg/dl Creatinine (0.6-1.2) mg/dl Est Cr Clr Drug Dosing Est GFR ( Amer) ml/min Est GFR (Non-Af Amer) ml/min BUN/Creatinine Ratio (10-20) Glucose (70-99) mg/dl Lactate 2.3 H* (0.4-2.0) mmol/L Calcium (8.5-10.1) mg/dl Total Bilirubin (0.2-1) mg/dl AST (15-37) U/L ALT (12-78) U/L Alkaline Phosphatase (45-117) U/L Troponin I (0-0.045) ng/ml Total Protein (6.4-8.2) gm/dl Albumin (3.4-5.0) gm/dl Globulin (2.5-4.0) gm/dl Albumin/Globulin Ratio (0.9-2) TSH (0.300-4.500) uIu/ml COVID-19 Eval Order Covid19 at [facility] [place] SARS-CoV-2 (PCR) NEGATIVE (Negative) 02/21/21 Range/Units 12:30 WBC (4.8-10.8) K/uL RBC (4.2-5.4) M/uL Hgb (12.0-16.0) g/dL Hct (37-47) % MCV (80-100) fL MCH (25-34) pg MCHC (32-36) g/dL RDW Std Deviation (36.4-46.3) fL RDW Coeff of Sam (11.5-14.5) % Plt Count (130-400) K/uL MPV (7.4-10.4) fL Immature Gran % (Auto) % Neut % (Auto) % Lymph % (Auto) % Coke % (Auto) % Eos % (Auto) % Baso % (Auto) % Neut # (Auto) (1.4-6.5) K/uL Lymph # (Auto) (1.2-3.4) K/uL Coke # (Auto) (0.11-0.59) K/uL Eos # (Auto) (0-0.5) K/uL Baso # (Auto) (0-0.2) K/uL Immature Gran # (Auto) (0.00-0.02) K/uL Sodium (136-145) mmol/L Potassium (3.5-5.1) mmol/L Chloride (98-107) mmol/L Carbon Dioxide (21-32) mmol/L Anion Gap (3-11) BUN (7-18) mg/dl Creatinine (0.6-1.2) mg/dl Est Cr Clr Drug Dosing Est GFR ( Amer) ml/min Est GFR (Non-Af Amer) ml/min BUN/Creatinine Ratio (10-20) Glucose (70-99) mg/dl Lactate 2.1 H* (0.4-2.0) mmol/L Calcium (8.5-10.1) mg/dl Total Bilirubin (0.2-1) mg/dl AST (15-37) U/L ALT (12-78) U/L Alkaline Phosphatase (45-117) U/L Troponin I (0-0.045) ng/ml Total Protein (6.4-8.2) gm/dl Albumin (3.4-5.0) gm/dl Globulin (2.5-4.0) gm/dl Albumin/Globulin Ratio (0.9-2) TSH (0.300-4.500) uIu/ml COVID-19 Eval Order SARS-CoV-2 (PCR) (Negative) Imaging Data Radiologist's Impression: Chest X-Ray 02/21/21 09:10 XR chest 1V portable CLINICAL HISTORY: Fever COMPARISON STUDY: No previous studies for comparison. FINDINGS: Lung volumes are normal. There is no pneumothorax or pleural effusion. Cardiac size is normal. Mediastinal contours are unremarkable. There may be underlying emphysema. Note is made of left mid and left basilar opacity. There is also mild right basilar opacity. IMPRESSION: 1. Bilateral airspace opacities, greater within the left lung. The findings favor an infectious process. Radiographic follow-up to ensure resolution is recommended. 2. Suspected underlying emphysema. ACT 112: Negative or not required by law. Electronically signed by: Bandar Bond M.D. 02/21/2021 10:02 AM ECG Data Attestation: I personally reviewed and interpreted this ECG as follows: Indication: + SOB/dyspnea Rate (beats per minute): 96 Rhythm: + sinus rhythm ECG Intervals/blocks: + Normal QT-c ECG [place]: + Normal ECG ST segments: + ST depression (Inferior) ECG Findings: + Q waves (Anterior); no PACs or no PVCs Comparison ECG Date: no prior available Blood Pressure Blood Pressure Findings: Elevated blood pressure Blood Pressure Disposition: further management by hospitalist ELODIA Narrative This patient was evaluated and appeared to be in no significant distress. Patient was able to maintain her oxygenation off of nasal cannula however her work of breathing did exacerbate. Patient was given an hour-long DuoNeb treatment and IV dexamethasone. Blood cultures were obtained and the patient was medicated with IV cefepime as the chest x-ray is read as bilateral infiltrates. Patient's Covid swab is negative. She was medicated with IV Tylenol for her discomfort and low-grade fever. Patient did receive IV hydration. She was feeling improved on my reevaluation however still felt more comfortable with nasal cannula supplementation. Given her bilateral pneumonia on chest x-ray, leukocytosis, increased work of breathing with COPD, her case was discussed with the hospitalist who will evaluate the patient for further management. Impression & Plan Bilateral pneumonia, Acute exacerbation of chronic obstructive pulmonary disease Discharge Plan Visit Data Chief Complaint: Shortness of Breath/Dyspnea Stated Complaint: SOB ED Provider: Alice Bean Discharge Problem: Bilateral pneumonia, Acute exacerbation of chronic obstructive pulmonary disease Patient Disposition: Admitted As Inpatient Discharge Instructions Interventions: ED Discharge Assessment Last Done: 02/21/21 13:28 Discharge Problem: Bilateral pneumonia Qualifiers: Pneumonia type: due to unspecified organism Lung location: unspecified part of lung Qualified Code(s): J18.9 - Pneumonia, unspecified organism
[2021-02-22] MEDS: ASPIRIN 81 MG ECTAB PO SCH (08:36)
[2021-02-22] MEDS: FLUTICASONE FUROATE 200MCG 14 PUFFS/INHALER INH SCH (08:36)
[2021-02-22] MEDS: lisinopril 40 MG TAB PO SCH (08:36)
[2021-02-22] MEDS: UMECLIDINIUM/VILANTEROL 62.5/25MCG 7 PUFFS/INHALER INH SCH (08:37)
--- NOTE | 2021-02-22 11:52 | Nephrology Consultation ---
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 Lady has got 60-year smoking history and COPD, could be having SIADH on the background. There is a prerenal component as well as her oral intake has not been good. He has already received a liter of fluid,will stop any more fluids for now, as she is in distress Can drink around 1.5 L a day. Every 8 sodium. Maintain potassium more than 4 Target sodium, 132 until 2:00 tomorrow, if overcorrects use D5W. Repeat urine studies, with urine osmolality urine sodium , urine uric acid and creatinine, plasma uric acid and osmolality in a.m. tomorrow. (2) BRITTNEY (acute kidney injury): -Prerenal, resolved with fluid resuscitation. -Does not need IV fluids now (3) HTN (hypertension): Continue to hold diuretic. Can be given nifedipine, with a anthony blood pressure constantly more than 140/90. (4) COPD (chronic obstructive pulmonary disease): History of Present Illness Reason for Consultation: Hyponatremia Attending Physician: Maeve Kearney DO History of Present Illness 25-year-old thin cachectic lady with a past history of COPD, tobacco use for more than 60 years,RLS ,hypertension and hyperlipidemia was initially admitted to ER with increased shortness of breath, was recently treated for COPD exacerbation at [facility] [place]. She says that she has got pulmonary nodules and follows with Dr. Carlson. Chronically poor appetite due to feeling of bloating and acid reflux. Her labs were significant for hypertension(178/74), lactate of 2.3. She Was started on BiPAP but could not tolerate it, she has been on hydrochlorothiazide triamterene combo, lisinopril for hypertension. ER labs were significant for sodium of 122 (02/21-13.57), plasma osmoles to 60 urine osmolality 266 with random sodium of 25 .sodium had improved to 125 on 02/12 at 5.33am, As per nursing staff she was given a liter of normal saline and was running 80 mils per hour of normal saline when examined. When examined at bedside, was in mild respiratory distress with bilateral crepitations, no edema, containing saturations 88% on 2 L oxygen. Urine creatinine which was 1.31 on admission had improved to 0 .83. Has been passing urine without any difficulty. Allergies Allergy/AdvReac Type Severity Reaction Status Date / Time No Known Allergies Allergy Unverified 02/21/21 11:03 Home Medications Medication Instructions Recorded Confirmed Type albuterol sulfate 90 mcg/actuation 2 puff INHALATION Q4H PRN 02/21/21 02/21/21 History aerosol inhaler (Ventolin HFA) alendronate 70 mg tablet (Fosamax) 70 mg PO WK 02/21/21 02/21/21 History aspirin 81 mg tablet,delayed 81 mg PO QAM 02/21/21 02/21/21 History release (Aspirin Low Dose) fluticasone propionate 110 1 puff INHALATION Q12 02/21/21 02/21/21 History mcg/actuation HFA aerosol inhaler (Flovent HFA) lisinopril 40 mg tablet (Zestril) 40 mg PO QAM 02/21/21 02/21/21 History simvastatin 40 mg tablet (Zocor) 40 mg PO HS 02/21/21 02/21/21 History triamterene 37.5 1 cap PO QAM 02/21/21 02/21/21 History mg-hydrochlorothiazide 25 mg capsule umeclidinium 62.5 mcg-vilanterol 1 inh INHALATION DAILY 02/21/21 02/21/21 History 25 mcg/actuation powdr for inhalation (Anoro Ellipta) Patient History Medical History (Updated 02/21/21 @ 21:38 by Maeve Kearney DO) COPD (chronic obstructive pulmonary disease) History of tobacco use 60 year history. Quit 10/2020 HLD (hyperlipidemia) HTN (hypertension) Underweight Surgical History (Updated 02/21/21 @ 14:26 by Maryellen Herbert PA-C) History of femoral hernia repair History of hysterectomy Family History (Updated 02/21/21 @ 14:26 by Maryellen Herbert PA-C) Other COPD (chronic obstructive pulmonary disease) Coronary heart disease Lung cancer Social History (Updated 02/21/21 @ 14:26 by Maryellen Herbert PA-C) Smoking Status: Former smoker Tobacco Cessation Education Requested by Patient: No Hx Alcohol Use: No Hx Substance Use: No Preferred Language: Faroese Communication Ability: Effective Architecture Technician Required: No Beliefs That Will Affect Care: None Current Living Situation: Alone Other Information That Helps Us Care for You: No Feels Safe at Home: Yes Safety Concerns: Feels Safe At This Time Assistive Devices: Oxygen - Continuous Review of Systems Review of Systems: All systems reviewed & are unremarkable except as noted in HPI & below Physical Exam Physical Exam: General: Cachectic, chronically ill-appearing elderly female Head: normocephalic, atraumatic Eyes: PERRL, EOM's intact, conjunctiva non-injected, anicteric ENT: normal inspection external ears, nose, mucous membranes mildly dry Neck: supple, trachea midline Lungs: on 2 L oxygen mask, severely diminished breath sounds throughout,bilateral crepitations CV: Tachycardia rate 104, regular rhythm, no murmur, no pretibial edema Abd: normal BS, soft, non-tender Ext: no cyanosis, no calf tenderness Neuro: A&O x 3, no focal deficits noted, normal affect Results & Data ([facility]) Vital Signs (Past 12 Hours) Vital Signs Temp Pulse Pulse Resp BP Pulse Ox 02/22/21 11:03 82 18 98 02/22/21 08:00 36.5 C 98 H 20 113/64 97 02/22/21 07:26 82 20 98 02/22/21 03:03 36.5 C 85 18 133/73 98 02/21/21 23:59 36.4 C L 83 18 115/66 95 02/21/21 23:45 86 Laboratory Results 02/22/21 05:33 02/22/21 05:33
--- NOTE | 2021-02-22 13:11 | Hospitalist Progress Note ---
Date of Service February 22, 2021 Assessment & Plan (1) Bilateral pneumonia: Plan: Cont Rocephin and Doxycycline-improving. (2) COPD exacerbation: Plan: Cont to treat underlying pneumonia. Cont Rocephin, doxycycline for now. De- escalate steroid to daily prednisone. Cont bronchodilator therapy and oxygen supplementation as needed. Wean off oxygen prior to discharge. (3) Hyponatremia: Plan: Nephro following recommends this is hypovolemic hypoosmolar hyponatremia in the background of likely SIADH and diuretic use. There also may be a prerenal component as her oral intake is not been good. Continue fluid restriction to 1.5 L/day and trend BMP. Correct electrolytes as needed. (4) BRITTNEY (acute kidney injury): Plan: Prerenal etiology, resolved with fluid resuscitation. (5) HTN (hypertension): Plan: BP stable Continue lisinopril Hold triamterene/HCTZ (6) Myoclonic jerking: Plan: Patient with jerking type movements. No loss of consciousness. Is awake and alert and oriented. Reports this occurred in the past and had hypoxia associated with it-symptoms are intermittent and patient doesn't appear too bothered by this. Treat COPD exacerbation as above Monitor If no improvement consider neurology consult (7) HLD (hyperlipidemia): Plan: Continue simvastatin per home regimen. (8) History of tobacco use: Plan: Recent smoking cessation 10/2020-praised for this effort! (9) DVT prophylaxis: Plan: Lovenox Full Code Dispo-to home when improved medically. Maeve Kearney DO [facility] Hospitalist Admission and Anticipated Discharge Date Admission Date: February 21, 2021 Subjective 75 yo F with known COPD who is not currently on home oxygen presented with acute worsening of SOB. Found to have bilateral pneumonia and a COPD exacerbaiton. Some conversational dyspnea She is able to mentate clearly She reports persistent SOB and that she has felt is improved multiple other chronic issues ongoing such as intermittent nausea. ? She was questioning why her ribs stuck out, and reported that her breasts were irritating part of her lower thoracic rib area. When asked to wear a bra she declined. +cough improved, +SOB, no CP, tolerating PO Review of Systems Review of Systems: All systems were reviewed and negative except as indicated in HPI above. Physical Exam Physical Exam: CONSTITUTIONAL: WNWD, vitals as above, generally well- appearing EYES: normal conjunctivae, no scleral icterus ENT: external ear and nose normal, oropharynx clear, no TM abnormality, no maxillary or ethmoid sinus tenderness NECK: trachea midline, no lymphadenopathy RESPIRATORY: clear to auscultation bilaterally-moving air better today, no crackles, rales or wheezes, normal respiratory effort, intermittent conversational dyspnea noted. CARDIOVASCULAR: regular rate and rhythm, S1 and 2 heard without murmurs, curry ps or rubs, no JVD, no peripheral edema CHEST: inspection of chest was normal GASTROINTESTINAL: soft, nontender, nondistended, no guarding. MUSCULOSKELETAL: strength 5/5 throughout, head is normocephalic and atraumatic SKIN: warm and dry NEUROLOGIC: CN 2-12 grossly intact, no sensory deficit, normal cognition, normal speech, no tremor PSYCHIATRIC: alert cooperative and oriented to person, place and time. Results & Data Results & Data ([facility]) Vital Signs (Past 12 Hours) Vital Signs Temp Pulse Resp BP Pulse Ox 02/22/21 12:07 36.7 C 96 H 20 115/56 L 97 02/22/21 11:03 82 18 98 02/22/21 08:00 36.5 C 98 H 20 113/64 97 02/22/21 07:26 82 20 98 02/22/21 03:03 36.5 C 85 18 133/73 98 Laboratory Results Short CBC 02/22/21 Range/Units 05:33 WBC 10.12 (4.8-10.8) K/uL Hgb 10.5 L D (12.0-16.0) g/dL Hct 29.4 L (37-47) % Plt Count 179 (130-400) K/uL BMP 02/21/21 02/21/21 02/22/21 13:57 19:31 00:54 Sodium 122 L 122 L 122 L Potassium 3.8 3.7 3.6 Chloride 90 L 90 L 92 L Carbon Dioxide 21 22 22 BUN 12 16 19 H Creatinine 1.07 1.31 H 1.05 Glucose 173 H 179 H 146 H Calcium 8.5 8.6 8.6 02/22/21 05:33 Sodium 125 L Potassium 3.7 Chloride 94 L Carbon Dioxide 24 BUN 17 Creatinine 0.83 Glucose 129 H Calcium 8.6 Medications Administered Current Inpatient Medications Acetaminophen (Acetaminophen 325 Mg Tab) 650 mg PO Q4H PRN PRN Reason: Pain or Fever Stop: 03/23/21 13:57 Last Admin: 02/21/21 21:33 Dose: 650 mg Documented by: Albuterol (Albut/Ipratrop 3mg/0.5mg Neb 3 Ml Vial) 3 ml NEB QIDR [facility] Stop: 03/23/21 14:59 Last Admin: 02/22/21 11:03 Dose: 3 ml Documented by: Aspirin (Aspirin 81 Mg Ectab) 81 mg PO QAM [facility] Stop: 03/24/21 08:59 Last Admin: 02/22/21 08:36 Dose: 81 mg Documented by: Enoxaparin Sodium (Enoxaparin Inj 30 Mg/0.3 Ml Syr) 30 mg SQ Q24H [facility] Stop: 03/23/21 14:59 Last Admin: 02/21/21 15:18 Dose: 30 mg Documented by: Fluticasone Furoate (Fluticasone Furoate 200mcg 14 Puffs/Inhaler) 1 puffs INH DAILY [facility] Stop: 03/24/21 08:59 Last Admin: 02/22/21 08:36 Dose: 1 puffs Documented by: Ceftriaxone Sodium 2,000 mg/ (Dextrose) 50 mls @ 100 mls/hr IV Q24H [facility]; Protocol Stop: 02/28/21 17:59 Last Infusion: 02/21/21 18:21 Dose: Infused Documented by: Doxycycline Hyclate 100 mg/ (Dextrose) 110 mls @ 50 mls/hr IV Q12H [facility] Stop: 02/28/21 14:14 Last Infusion: 02/22/21 03:42 Dose: Infused Documented by: Methylprednisolone 40 mg/ (Syringe) 0.64 mls @ 1.5 mls/min IV Q8H [facility] Stop: 03/23/21 16:59 Last Admin: 02/22/21 08:36 Dose: 1.5 mls/min Documented by: Lisinopril (Lisinopril 40 Mg Tab) 40 mg PO QAM [facility] Stop: 03/24/21 08:59 Last Admin: 02/22/21 08:36 Dose: 40 mg Documented by: Ondansetron HCl (Ondansetron Inj 2 Mg/Ml 2 Ml Vial) 4 mg IV Q6H PRN PRN Reason: Nausea Stop: 03/23/21 13:57 Polyethylene Glycol (Polyethylene (Miralax) 17 Gm Pack) 17 gm PO DAILY PRN PRN Reason: Constipation Stop: 03/23/21 13:57 Simvastatin (Simvastatin 40 Mg Tab) 40 mg PO [facility] Stop: 03/23/21 20:59 Last Admin: 02/21/21 21:32 Dose: 40 mg Documented by: Umeclidinium/Vilanterol (Umeclidinium/Vilanterol 62.5/25mcg 7 Puffs/Inhaler) 1 puffs INH DAILY [facility] Stop: 03/24/21 08:59 Last Admin: 02/22/21 08:37 Dose: 1 puffs Documented by:
[2021-02-22] MEDS: predniSONE 20 MG TAB PO SCH (15:27)
[2021-02-22] MEDS: ENOXAPARIN INJ 30 MG/0.3 ML SYR SQ SCH (15:27)
[2021-02-22] MEDS: cefTRIAXone SODIUM 2,000 MG in DEXTROSE 5% 50 ML IV SCH (17:53)
[2021-02-22] MEDS: SIMVASTATIN 40 MG TAB PO SCH (20:26)
[2021-02-23] MEDS: DOXYCYCLINE HYCLATE 100 MG in DEXTROSE 5% 100 ML IV SCH (02:34)
[2021-02-23 05:03] LABS: Creatinine Urine Random 29.9 mg/dl; Uric Acid Urine Random 26.8 mg/dl
[2021-02-23] MEDS: FLUTICASONE FUROATE 200MCG 14 PUFFS/INHALER INH SCH (07:31)
[2021-02-23] MEDS: UMECLIDINIUM/VILANTEROL 62.5/25MCG 7 PUFFS/INHALER INH SCH (07:31)
[2021-02-23] MEDS: ASPIRIN 81 MG ECTAB PO SCH (07:32)
[2021-02-23] MEDS: predniSONE 20 MG TAB PO SCH (07:32)
[2021-02-23] MEDS: lisinopril 40 MG TAB PO SCH (07:32)
[2021-02-23] MEDS: ALBUT/IPRATROP 3MG/0.5MG NEB 3 ML VIAL NEB SCH (07:53)
[2021-02-23 08:29] LABS: BUN Creatinine Ratio 26.1 (10-20); Calcium 8.9 mg/dl (8.5-10.1); Creatinine Clr Calc Pharmacy 54.7 ml/min; Est GFR (African American) 97.3 ml/min; Est GFR (Non-African American) 83.9 ml/min; Potassium 3.6 mmol/L (3.5-5.1)
[2021-02-23] MEDS ORDERED: predniSONE 20 MG TAB PO STA (09:02)
[2021-02-23] MEDS ORDERED: ALBUT/IPRATROP 3MG/0.5MG NEB 3 ML VIAL NEB PRN (09:02)
--- NOTE | 2021-02-23 10:25 | Nephrology Progress Note ---
Date of Service February 23, 2021 Assessment & Plan (1) Hyponatremia: Plan: Hypovolemic hypoosmolar hyponatremia on the background of diuretic use. Lady has got 60-year smoking history and COPD, could be having SIADH on the background. Sna improved with accepted target limits. U na most consistent with volume contracted state.. - Recommend 1 lit NS in 24 hr, I would be careful with fluid because of her tedious pulmonary status. - Maintain potassium more than 4 - BMP can now be switched to daily. Repeat urine studies, with urine osmolality urine sodium , urine uric acid and creatinine, plasma uric acid and osmolality once euvolumic.. (2) BRITTNEY (acute kidney injury): Plan: -Prerenal, resolved with fluid resuscitation. (3) HTN (hypertension): Plan: Continue to hold diuretic. Can be given nifedipine, with a anthony blood pressure constantly more than 140/90. (4) COPD (chronic obstructive pulmonary disease): Admission and Anticipated Discharge Date Admission Date: February 21, 2021 Subjective 75 yo F with known COPD who is not currently on home oxygen presented with acute worsening of SOB. Found to have bilateral pneumonia and a COPD exacerbaiton. SOB at baseline. Nephrology consulted for hyponatremia. Cachectic, no edema. Review of Systems Review of Systems: All systems reviewed & are unremarkable except as noted in HPI & below Physical Exam Physical Exam: General: Cachectic, chronically ill-appearing elderly female Head: normocephalic, atraumatic Eyes: PERRL, EOM's intact, conjunctiva non-injected, anicteric ENT: normal inspection external ears, nose, mucous membranes dry Neck: supple, trachea midline Lungs: on 2 L oxygen mask, severely diminished breath sounds throughout,bilateral crepitations CV: Tachycardia rate 104, regular rhythm, no murmur, no pretibial edema Abd: normal BS, soft, non-tender Ext: no cyanosis, no calf tenderness Neuro: A&O x 3, no focal deficits noted, normal affect Results & Data ([facility]) Vital Signs (Past 12 Hours) Vital Signs Temp Pulse Pulse Resp BP Pulse Ox 02/23/21 07:53 76 18 98 02/23/21 07:43 74 02/23/21 07:32 36.6 C 82 17 146/72 H 96 02/23/21 04:22 36.4 C L 75 20 145/74 H 99 02/22/21 23:44 36.3 C L 82 18 121/62 91 Laboratory Results 02/22/21 05:33 02/23/21 07:24
[2021-02-23] MEDS: AMOXICILLIN 500 MG CAP PO SCH ×3 (10:26→19:38)
[2021-02-23] MEDS: DOXYCYCLINE HYCLATE 100 MG CAP PO SCH ×2 (10:26→21:26)
[2021-02-23] MEDS ORDERED: SODIUM CHLORIDE 0.9% 1000ML 1,000 ML IV SCH (11:30)
[2021-02-23] MEDS: ENOXAPARIN INJ 30 MG/0.3 ML SYR SQ SCH (17:32)
[2021-02-23] MEDS: SIMVASTATIN 40 MG TAB PO SCH (21:25)
--- NOTE | 2021-02-23 22:06 | Hospitalist Progress Note ---
Date of Service February 23, 2021 Assessment & Plan (1) Bilateral pneumonia: Plan: Transitioned to amoxicillin and doxycycline p.o. to complete the course (2) COPD exacerbation: Plan: Cont to treat underlying pneumonia. Continue prednisone daily, cont bronchodilator therapy and oxygen supplementation as needed. Wean off oxygen prior to discharge. Follow-up with pulmonology as outpatient. (3) Hyponatremia: Plan: Nephro following recommends this is hypovolemic hypoosmolar hyponatremia in the background of likely SIADH and diuretic use. There also may be a prerenal component as her oral intake is not been good. Continue fluid restriction to 1.5 L/day and trend BMP. Correct electrolytes as needed. (4) BRITTNEY (acute kidney injury): Plan: Prerenal etiology, resolved with fluid resuscitation. (5) HTN (hypertension): Plan: BP stable Continue lisinopril Hold triamterene/HCTZ (6) Myoclonic jerking: Plan: Patient with jerking type movements. No loss of consciousness. Is awake and alert and oriented. Reports this occurred in the past and had hypoxia associated with it-symptoms are intermittent and patient doesn't appear too bothered by this. Treat COPD exacerbation as above (7) HLD (hyperlipidemia): Plan: Continue simvastatin per home regimen. (8) History of tobacco use: Plan: Recent smoking cessation 10/2020-praised for this effort! (9) DVT prophylaxis: Plan: Lovenox Full Code Dispo-to home when improved medically, hopefully in a.m. PT and OT assessments were ordered [facility] Admission and Anticipated Discharge Date Admission Date: February 21, 2021 Subjective 75-year-old female with COPD presents with COPD exacerbation secondary to pneumonia Patient reports episode of prolonged coughing spell this morning and some significant shortness of breath this morning that is now improved. She does not have a nebulizer at home and may find it useful to have one at discharge. She denies any chest pain She is reporting frustration with not feeling well No myoclonic jerking reported or seen in this examination Tolerating p.o. Review of Systems Review of Systems: All systems were reviewed and negative except as indicated in HPI above. Physical Exam Physical Exam: CONSTITUTIONAL: WNWD, vitals as above, generally well- appearing EYES: normal conjunctivae, no scleral icterus ENT: external ear and nose normal, oropharynx clear, no TM abnormality, no maxillary or ethmoid sinus tenderness NECK: trachea midline, no lymphadenopathy RESPIRATORY: clear to auscultation bilaterally, no crackles, rales or wheezes, normal respiratory effort, conversational dyspnea improved. CARDIOVASCULAR: regular rate and rhythm, S1 and 2 heard without murmurs, gallops or rubs, no JVD, no peripheral edema CHEST: inspection of chest was normal GASTROINTESTINAL: soft, nontender, nondistended, no guarding. MUSCULOSKELETAL: strength 5/5 throughout, head is normocephalic and atraumatic SKIN: warm and dry NEUROLOGIC: CN 2-12 grossly intact, no sensory deficit, normal cognition, normal speech, no tremor PSYCHIATRIC: alert cooperative and oriented to person, place and time. Results & Data Results & Data ([facility]) Vital Signs (Past 12 Hours) Vital Signs Temp Pulse Resp BP Pulse Ox 02/23/21 14:53 36.4 C L 80 20 145/73 H 94 02/23/21 14:01 94 02/23/21 11:25 36.6 C 80 19 137/74 96 Laboratory Results [facility] 02/23/21 07:24 Sodium 132 L Potassium 3.6 Chloride 100 Carbon Dioxide 26 BUN 18 Creatinine 0.71 Glucose 89 Calcium 8.9 Medications Administered Current Inpatient Medications Acetaminophen (Acetaminophen 325 Mg Tab) 650 mg PO Q4H PRN PRN Reason: Pain or Fever Stop: 03/23/21 13:57 Last Admin: 02/21/21 21:33 Dose: 650 mg Documented by: Albuterol (Albut/Ipratrop 3mg/0.5mg Neb 3 Ml Vial) 3 ml NEB QIDR PRN PRN Reason: SOB/wheezing Stop: 03/23/21 14:59 Amoxicillin (Amoxicillin 500 Mg Cap) 1,000 mg PO Q8H [facility] Stop: 03/02/21 08:59 Last Admin: 02/23/21 19:38 Dose: 1,000 mg Documented by: Aspirin (Aspirin 81 Mg Ectab) 81 mg PO QAM [facility] Stop: 03/24/21 08:59 Last Admin: 02/23/21 07:32 Dose: 81 mg Documented by: Doxycycline Hyclate (Doxycycline Hyclate 100 Mg Cap) 100 mg PO BID [facility] Stop: 03/02/21 08:59 Last Admin: 02/23/21 21:26 Dose: 100 mg Documented by: Enoxaparin Sodium (Enoxaparin Inj 30 Mg/0.3 Ml Syr) 30 mg SQ Q24H [facility] Stop: 03/23/21 14:59 Last Admin: 02/23/21 17:32 Dose: 30 mg Documented by: Fluticasone Furoate (Fluticasone Furoate 200mcg 14 Puffs/Inhaler) 1 puffs INH DAILY [facility] Stop: 03/24/21 08:59 Last Admin: 02/23/21 07:31 Dose: 1 puffs Documented by: Guaifenesin/Codeine Phosphate (Guaifenesin/Codeine 200mg/20mg 10ml Udc) 10 ml PO Q6H PRN PRN Reason: Cough Stop: 03/25/21 12:25 Last Admin: 02/23/21 12:38 Dose: 10 ml Documented by: Sodium Chloride (Nss 1000ml) 1,000 mls @ 75 mls/hr IV .[id number] [facility] Stop: 02/24/21 00:49 Last Admin: 02/23/21 11:44 Dose: 75 mls/hr Documented by: Lisinopril (Lisinopril 40 Mg Tab) 40 mg PO QAM [facility] Stop: 03/24/21 08:59 Last Admin: 02/23/21 07:32 Dose: 40 mg Documented by: Ondansetron HCl (Ondansetron Inj 2 Mg/Ml 2 Ml Vial) 4 mg IV Q6H PRN PRN Reason: Nausea Stop: 03/23/21 13:57 Polyethylene Glycol (Polyethylene (Miralax) 17 Gm Pack) 17 gm PO DAILY PRN PRN Reason: Constipation Stop: 03/23/21 13:57 Prednisone (Prednisone 20 Mg Tab) 40 mg PO DAILY [facility] Stop: 03/26/21 08:59 Simvastatin (Simvastatin 40 Mg Tab) 40 mg PO HS [facility] Stop: 03/23/21 20:59 Last Admin: 02/23/21 21:25 Dose: 40 mg Documented by: Umeclidinium/Vilanterol (Umeclidinium/Vilanterol 62.5/25mcg 7 Puffs/Inhaler) 1 puffs INH DAILY [facility] Stop: 03/24/21 08:59 Last Admin: 02/23/21 07:31 Dose: 1 puffs Documented by:
[2021-02-24 07:14] LABS: Hematocrit (blood only) 31.7 % (37-47); Mean Corpuscular Hemoglobin 29.7 pg (25-34); Mean Corpuscular Hgb Conc 34.7 g/dL (32-36); Mean Corpuscular Volume 85.7 fL (80-100); Mean Platelet Volume 9.4 fL (7.4-10.4); Platelet Count 278 K/uL (130-400); RDW Coefficient of Variation 13.4 % (11.5-14.5); White Blood Count 7.94 K/uL (4.8-10.8)
[2021-02-24 07:15] LABS: BUN Creatinine Ratio 23.8 (10-20); Calcium 8.4 mg/dl (8.5-10.1); Est GFR (African American) 102.4 ml/min; Est GFR (Non-African American) 88.4 ml/min; Magnesium 1.8 mg/dl (1.8-2.4); Potassium 3.6 mmol/L (3.5-5.1)
[2021-02-24] MEDS: UMECLIDINIUM/VILANTEROL 62.5/25MCG 7 PUFFS/INHALER INH SCH (08:25)
[2021-02-24] MEDS: FLUTICASONE FUROATE 200MCG 14 PUFFS/INHALER INH SCH (08:25)
[2021-02-24] MEDS ORDERED: predniSONE 20 MG TAB PO SCH (09:00)
[2021-02-24] MEDS: AMOXICILLIN 500 MG CAP PO SCH ×2 (09:39→16:38)
[2021-02-24] MEDS: DOXYCYCLINE HYCLATE 100 MG CAP PO SCH (09:40)
[2021-02-24] MEDS: lisinopril 40 MG TAB PO SCH (09:41)
[2021-02-24] MEDS: ASPIRIN 81 MG ECTAB PO SCH (09:41)
--- NOTE | 2021-02-24 12:50 | Nephrology Progress Note ---
Date of Service February 24, 2021 Assessment & Plan (1) Hyponatremia: Plan: Hypovolemic hypoosmolar hyponatremia on the background of thiazide diuretic use, 60-year smoking history and COPD, suspicious for SIADH on the background. She has had sNa in low 130s x years Sna improved with accepted target limits. U na most consistent with volume contracted state Will sign off. Discharge summary updated w/ recs below. >keep K at 4 >>added thiazides to her allergies/intolerance list here and at [facility] >after discharge, nephrology will place orders for her to have weekly bmp x 4; recommend also weekly BP check x 4 wks at PCP office . >no nephro follow up needed unless hyponatremia persists (2) BRITTNEY (acute kidney injury): Plan: -Prerenal, resolved with fluid resuscitation. (3) HTN (hypertension): Plan: Continue to hold diuretic; medication intolerance (not an allergy ) updated At discharge recommend lasix 20 mg MWF and amlodipine 5 mg daily Admission and Anticipated Discharge Date Admission Date: February 21, 2021 Subjective seen on rounds at 10 am; ongoing cough, still struggling to mobilize phlegm; feels breathing at baseline; ambulated w/ PT this am id steps; per pt no issues Review of Systems Review of Systems: All systems reviewed & are unremarkable except as noted in Subjective Physical Exam Constitutional: well developed and + thin Eyes: EOM intact bilaterally ENMT: Ears: no external ear abnormality Nose: no external nose abnormality Mouth: + dry oral mucous membranes Neck: no nuchal rigidity Respiratory: normal respiratory effort and + cough Auscultation: + diminished lung sounds Cardiovascular: RRR, no murmur, no edema Gastrointestinal (Abdomen): Inspection/Auscultation: normal bowel sounds Percussion/Palpation: abdomen soft; abdomen nontender Musculoskeletal: Extremities: strength 5/5 throughout Skin: no rashes, warm and dry Neurologic: reddy, fluent speech, no tremor Psychiatric: Orientation: alert and oriented x 3 Results & Data ([facility]) Vital Signs (Past 12 Hours) Vital Signs Temp Pulse Resp BP Pulse Ox 02/24/21 07:56 36.8 C 70 16 149/76 H 95 Laboratory Results 02/24/21 06:08 02/24/21 06:08
[2021-02-24] MEDS: ENOXAPARIN INJ 30 MG/0.3 ML SYR SQ SCH (16:39)
== END 2021-02-24 20:04 | disposition home or self-care (01) | DRG 194 ==
LOC: ED 08:00 → SUATTDRO 12:39 → 2S 12:39 → 3W 02-23 12:27